=== PATIENT | female | born 2005 | race Two or more races ===

== ENCOUNTER 2024-07-27 20:40 | Emergency (ER) | payer OTHER ==
[~2024-07-27] VITALS: Ht 154.9 cm; Wt 61.4 kg
[2024-07-27 21:03] VITALS: BP 102/44; PULSE 71; RESP 16; TEMP 98.2; O2SAT 100
== END 2024-07-28 00:42 | disposition left against medical advice (07) ==
LOC: EMS 20:40
DX: M54.2 Cervicalgia (principal); Z53.21 Procedure and treatment not carried out due to patient leaving prior to being seen by health care provider